=== PATIENT | female | born 1985 | race Caucasian/White ===

== ENCOUNTER 2018-02-23 21:15 | Emergency (ER) | payer OTHER ==
[~2018-02-23] VITALS: Ht 167.6 cm; Wt 64.0 kg
[2018-02-23 21:53] LABS: BASOPHILS # (AUTO) 0.09 x10^3/uL (0-0.1); BASOPHILS % (AUTO) 1 % (0-1); EOSINOPHILS # (AUTO) 0.08 x10^3/uL (0-0.4); EOSINOPHILS % (AUTO) 1 % (1-7); LYMPHOCYTES # (AUTO) 1.81 x10^3/uL (1-3.4); LYMPHOCYTES % (AUTO) 15 % (22-44); MD NO; MEAN CORPUSCULAR HEMOGLOBIN 31.2 pg (27.0-34.8); MEAN CORPUSCULAR HGB CONC 34.8 g/dL (32.4-35.8); MEAN CORPUSCULAR VOLUME 89.7 fL (80-100); MEAN PLATELET VOLUME 8.9 fL (7.4-10.4); MONOCYTES # (AUTO) 0.66 x10^3/uL (0.2-0.8); MONOCYTES % (AUTO) 6 % (2-9); NEUTROPHILS # (AUTO) 9.11 x10^3/uL (1.8-6.8); NEUTROPHILS % (AUTO) 78 % (42-75); PLATELET COUNT 244 x10^3/uL (130-400); RED CELL DISTRIBUTION WIDTH 13.9 % (9.6-15.2)
[2018-02-23 21:58] LABS: MICROSCOPIC AUTO
[2018-02-23 21:59] LABS: CULTURE INDICATED? YES
[2018-02-23 22:03] LABS: ANION GAP 10 mmol/L (5-15); CALCIUM 8.4 mg/dL (8.5-10.1); CHLORIDE 108 mmol/L (98-107); CREATININE 0.69 mg/dL (0.55-1.02)
[2018-02-23 22:56] VITALS: BP 121/64
== END 2018-02-23 23:20 | disposition home or self-care (01) ==
LOC: ED 22:40
DX: O20.0 Threatened abortion (principal); Z3A.19 19 weeks gestation of pregnancy
CPT/HCPCS: 36415; 76815; 80048; 81001; 82040; 84702; 85025; 86901; 87086; 99285

== ENCOUNTER 2018-05-12 11:51 | Inpatient (IN) | payer OTHER ==
[~2018-05-12] VITALS: Ht 167.6 cm; Wt 69.0 kg
[2018-05-12 12:04] VITALS: BP 125/70
[2018-05-12] MEDS ORDERED: PREN-3 PO (12:07)
[2018-05-12] MEDS ORDERED: HYDR250V5 IM (12:09)
[2018-05-12 12:25] LABS: MICROSCOPIC INDICATED
[2018-05-12] MEDS ORDERED: TERBUTALINE 1 MG/ML, 1ML ONE ×2 (14:31→23:44)
[2018-05-12] MEDS ORDERED: TERBUTALINE 1 MG/ML, 1ML SQ ONE (15:00)
[2018-05-12] MEDS ORDERED: PRENATAL VIT/IRON/FA 1 EACH TABLET ONE (22:15)
[2018-05-12] MEDS: PRENATAL VIT/IRON/FA 1 EACH TABLET PO SCH (22:17)
[2018-05-12] MEDS: LACTATED RINGERS 1,000 ML IV SCH (23:54)
[2018-05-13] MEDS ORDERED: TERBUTALINE 1 MG/ML, 1ML SQ ONE
[2018-05-13] MEDS ORDERED: MAGNESIUM SULF. PMX 20GM/500ML 500 ML IV ONE ×3 (03:37→17:57)
[2018-05-13] MEDS ORDERED: BETAMETHASONE 6 MG/ML, 5ML IM ONE (03:37)
[2018-05-13] MEDS ORDERED: MAGNESIUM SULF. PMX 20GM/500ML 500 ML IV SCH ×2 (03:38→15:51)
[2018-05-13] MEDS ORDERED: LACTATED RINGERS 1,000 ML IV PRN (03:38)
[2018-05-13] MEDS: BETAMETHASONE 6 MG/ML, 5ML IM SCH (03:49)
[2018-05-13] MEDS ORDERED: ONDANSETRON 2MG/ML, 2ML IVPush PRN (04:00)
[2018-05-13] MEDS ORDERED: MAGNESIUM SULFATE PMX 4GM/100M 100 ML IVPB ONE (04:00)
[2018-05-13 04:27] LABS: BASOPHILS # (AUTO) 0.04 x10^3/uL (0-0.1); BASOPHILS % (AUTO) 0 % (0-1); EOSINOPHILS # (AUTO) 0.06 x10^3/uL (0-0.4); EOSINOPHILS % (AUTO) 1 % (1-7); LYMPHOCYTES # (AUTO) 2.22 x10^3/uL (1-3.4); LYMPHOCYTES % (AUTO) 18 % (22-44); MD NO; MEAN CORPUSCULAR HGB CONC 33.2 g/dL (32.4-35.8); MEAN CORPUSCULAR VOLUME 90.3 fL (80-100); MEAN PLATELET VOLUME 9.4 fL (7.4-10.4); MONOCYTES # (AUTO) 0.81 x10^3/uL (0.2-0.8); MONOCYTES % (AUTO) 7 % (2-9); NEUTROPHILS # (AUTO) 9.25 x10^3/uL (1.8-6.8); NEUTROPHILS % (AUTO) 75 % (42-75); PLATELET COUNT 214 x10^3/uL (130-400); RED BLOOD COUNT 3.94 x10^6/uL (3.82-5.3); RED CELL DISTRIBUTION WIDTH 12.9 % (9.6-15.2)
[2018-05-13 04:32] LABS: ALANINE AMINOTRANSFERASE 17 U/L (12-78); ALBUMIN 2.5 g/dL (3.4-5.0); ANION GAP 9 mmol/L (5-15); CALCIUM 8.4 mg/dL (8.5-10.1); CHLORIDE 107 mmol/L (98-107); CREATININE 0.59 mg/dL (0.55-1.02)
[2018-05-13 04:34] LABS: ALKALINE PHOSPHATASE 89 U/L (45-117); TOTAL PROTEIN 5.7 g/dL (6.4-8.2)
[2018-05-13 04:35] LABS: BILIRUBIN,TOTAL < 0.1 mg/dL (0.2-1.0)
[2018-05-13] MEDS: MAGNESIUM SULF. PMX 20GM/500ML 500 ML IV SCH ×2 (05:48→09:40)
[2018-05-13] MEDS: LACTATED RINGERS 1,000 ML IV SCH ×2 (06:35→16:36)
[2018-05-13 07:15] VITALS: BP 120/61
[2018-05-13] MEDS ORDERED: DOCUSATE 100 MG CAPSULE PO SCH (09:00)
[2018-05-13] MEDS ORDERED: DOCUSATE 100 MG CAPSULE ONE (20:34)
[2018-05-13] MEDS ORDERED: PRENATAL VIT/IRON/FA 1 EACH TABLET ONE (20:34)
[2018-05-13] MEDS: PRENATAL VIT/IRON/FA 1 EACH TABLET PO SCH (20:36)
[2018-05-14] MEDS ORDERED: MAGNESIUM SULF. PMX 20GM/500ML 500 ML IV ONE (02:39)
[2018-05-14] MEDS: LACTATED RINGERS 1,000 ML IV SCH (03:20)
[2018-05-14] MEDS: BETAMETHASONE 6 MG/ML, 5ML IM SCH (03:27)
== END 2018-05-14 19:34 | disposition home or self-care (01) | DRG 831 ==
LOC: LDOP 11:51 → LDIP 15:19 → OBSVTOIN 15:19
PROVIDERS: ADMIT Obstetrics & Gynecology Maternal & Fetal Medicine; ATTEND Obstetrics & Gynecology Maternal & Fetal Medicine
DX: O46.93 Antepartum hemorrhage, unspecified, third trimester (principal); O60.03 Preterm labor without delivery, third trimester; Z3A.29 29 weeks gestation of pregnancy
CPT/HCPCS: 36415; 76815; 80053; 81001; 83735; 85025; 86850; 86900; 87086; G0378; J0702; J3105; J3475; J7120

== ENCOUNTER 2018-06-19 23:42 | Outpatient (CLI) | payer OTHER ==
[~2018-06-19] VITALS: Ht 167.6 cm; Wt 73.0 kg
[~2018-06-19 23:42] MED LIST: HYDR250V5 IM; PREN-3 PO
== END 2018-06-20 02:03 | disposition home or self-care (01) ==
LOC: LDOP 23:42
PROVIDERS: ATTEND Obstetrics & Gynecology Maternal & Fetal Medicine
DX: O26.893 Other specified pregnancy related conditions, third trimester (principal); R10.9 Unspecified abdominal pain; Z3A.35 35 weeks gestation of pregnancy
CPT/HCPCS: 59025; 87081; 99211; G0463

== ENCOUNTER 2018-06-29 21:45 | Inpatient (IN) | payer OTHER ==
[~2018-06-29] VITALS: Ht 167.6 cm; Wt 74.1 kg
[2018-06-29] MEDS ORDERED: MISOPROSTOL 200 MCG TABLET ONE (22:38)
[2018-06-29] MEDS ORDERED: NEWBORN KIT ONE (22:38)
[2018-06-29] MEDS ORDERED: LIDOCAINE 1%, 20ML ONE (22:38)
[2018-06-29] MEDS ORDERED: OXYTOCIN 30U/ 0.9% NaCL 500ML 500 ML ONE (22:38)
[2018-06-29] MEDS ORDERED: D5%-LACTATED RINGERS 1,000 ML IV SCH (22:57)
[2018-06-29] MEDS ORDERED: OXYTOCIN 30U/ 0.9% NaCL 500ML 500 ML IV ONE (22:57)
[2018-06-29] MEDS ORDERED: LACTATED RINGERS 1,000 ML IV SCH (22:57)
[2018-06-29] MEDS ORDERED: FENTANYL PF 100 MCG/2ML IVPush PRN (23:00)
[2018-06-29] MEDS ORDERED: CALCIUM CARBONATE 500 MG TAB.CHEW PO PRN (23:00)
[2018-06-29] MEDS ORDERED: TERBUTALINE 1 MG/ML, 1ML IVPush PRN (23:00)
[2018-06-29] MEDS ORDERED: FENTANYL PF 100 MCG/2ML IV PRN (23:00)
[2018-06-29] MEDS ORDERED: SODIUM CITRATE/CITRIC ACID 30 ML UDC PO PRN (23:00)
[2018-06-29] MEDS ORDERED: METOCLOPRAMIDE 5 MG/ML, 2ML IVPush PRN (23:00)
[2018-06-29] MEDS: LACTATED RINGERS 1,000 ML IV SCH ×2 (23:19→23:57)
[2018-06-29] MEDS ORDERED: FENTANYL/BUPIV./NS/PF 250 ML EPIDCONT SCH ×2 (23:19→23:57)
[2018-06-29] MEDS ORDERED: LACTATED RINGERS 1,000 ML IVBOLUS PRN (23:30)
[2018-06-29 23:37] LABS: BASOPHILS % (AUTO) 1 % (0-1); EOSINOPHILS # (AUTO) 0.07 x10^3/uL (0-0.4); EOSINOPHILS % (AUTO) 1 % (1-7); LYMPHOCYTES # (AUTO) 1.85 x10^3/uL (1-3.4); LYMPHOCYTES % (AUTO) 13 % (22-44); MD NO; MEAN CORPUSCULAR HEMOGLOBIN 30.1 pg (27.0-34.8); MEAN CORPUSCULAR HGB CONC 33.8 g/dL (32.4-35.8); MEAN PLATELET VOLUME 9.7 fL (7.4-10.4); MONOCYTES % (AUTO) 5 % (2-9); NEUTROPHILS # (AUTO) 11.07 x10^3/uL (1.8-6.8); NEUTROPHILS % (AUTO) 80 % (42-75); PLATELET COUNT 204 x10^3/uL (130-400); RED BLOOD COUNT 4.01 x10^6/uL (3.82-5.3); RED CELL DISTRIBUTION WIDTH 13.6 % (9.6-15.2)
[2018-06-29] MEDS ORDERED: BUPIVACAINE 0.25% ONE (23:58)
[2018-06-30] MEDS ORDERED: EPHEDRINE 50 MG/ML, 1ML IVPush PRN
[2018-06-30] MEDS ORDERED: LACTATED RINGERS 1,000 ML IVBOLUS PRN
[2018-06-30] MEDS ORDERED: NALOXONE 0.4 MG/ML, 1ML IVPush PRN
[2018-06-30] MEDS ORDERED: OXYTOCIN 30U/ 0.9% NaCL 500ML 500 ML IV SCH (03:08)
[2018-06-30] MEDS: OXYTOCIN 30U/ 0.9% NaCL 500ML 500 ML IV SCH ×2 (03:08→13:08)
[2018-06-30] MEDS ORDERED: ONDANSETRON 2MG/ML, 2ML IV PRN (03:30)
[2018-06-30] MEDS ORDERED: OXYcodone/APAP 5/325MG TABLET PO PRN (03:30)
[2018-06-30] MEDS ORDERED: ACETAMINOPHEN 325 MG TABLET PO PRN (03:30)
[2018-06-30] MEDS ORDERED: MISOPROSTOL 200 MCG TABLET PR PRN (03:30)
[2018-06-30] MEDS ORDERED: OXYcodone IR 5MG TABLET PO PRN (03:30)
[2018-06-30] MEDS ORDERED: DOCUSATE 100 MG CAPSULE PO PRN (03:30)
[2018-06-30 05:30] VITALS: BP 128/70
[2018-06-30] MEDS: IBUPROFEN 600 MG TABLET PO PRN ×3 (07:14→21:33)
[2018-06-30] MEDS: PRENATAL VIT/IRON/FA 1 EACH TABLET PO SCH (07:15)
[2018-06-30] MEDS: LACTATED RINGERS 1,000 ML IV SCH ×2 (07:19→07:57)
[2018-06-30 07:20] VITALS: BP 121/80
[2018-06-30] MEDS ORDERED: PRENATAL VIT/IRON/FA 1 EACH TABLET PO SCH (09:00)
[2018-06-30 11:01] LABS: BASOPHILS # (AUTO) 0.05 x10^3/uL (0-0.1); BASOPHILS % (AUTO) 0 % (0-1); EOSINOPHILS # (AUTO) 0.21 x10^3/uL (0-0.4); EOSINOPHILS % (AUTO) 1 % (1-7); LYMPHOCYTES % (AUTO) 8 % (22-44); MD NO; MEAN CORPUSCULAR HEMOGLOBIN 30.6 pg (27.0-34.8); MEAN CORPUSCULAR HGB CONC 34.4 g/dL (32.4-35.8); MEAN PLATELET VOLUME 9.5 fL (7.4-10.4); MONOCYTES # (AUTO) 0.92 x10^3/uL (0.2-0.8); MONOCYTES % (AUTO) 6 % (2-9); NEUTROPHILS # (AUTO) 13.46 x10^3/uL (1.8-6.8); NEUTROPHILS % (AUTO) 85 % (42-75); PLATELET COUNT 187 x10^3/uL (130-400); RED BLOOD COUNT 3.79 x10^6/uL (3.82-5.3); RED CELL DISTRIBUTION WIDTH 13.6 % (9.6-15.2)
[2018-06-30 12:30] VITALS: BP 123/76
[2018-06-30 16:10] VITALS: BP 120/75
[2018-06-30 21:15] VITALS: BP 114/70
[2018-06-30] MEDS ORDERED: DIPH,PERTUSS(ACELL),TET VAC/PF NC IM-VACC ONE (22:45)
[2018-07-01 03:00] VITALS: BP 119/74
[2018-07-01] MEDS: IBUPROFEN 600 MG TABLET PO PRN ×3 (03:25→15:11)
[2018-07-01] MEDS ORDERED: DIPH,PERTUSS(ACELL),TET VAC/PF NC IM-VACC ONE (03:30)
[2018-07-01] MEDS: PRENATAL VIT/IRON/FA 1 EACH TABLET PO SCH (08:19)
[2018-07-01 10:14] VITALS: BP 123/84
[2018-07-01] MEDS ORDERED: IBUP200T49 PO (17:58)
== END 2018-07-01 18:30 | disposition home or self-care (01) | DRG 807 ==
LOC: LDOP 21:45 → LDIP 22:30 → 2NW 06-30 05:12
PROVIDERS: ADMIT Obstetrics & Gynecology Maternal & Fetal Medicine; ATTEND Obstetrics & Gynecology Maternal & Fetal Medicine
PROC: 10E0XZZ Delivery of Products of Conception, External Approach (ICD-10-PCS; principal; 2018-06-30)
PROC: 0HQ9XZZ Repair Perineum Skin, External Approach (ICD-10-PCS; 2018-06-30)
PROC: 3E0R3BZ Introduction of Anesthetic Agent into Spinal Canal, Percutaneous Approach (ICD-10-PCS; 2018-06-30)
PROC: 00HU33Z Insertion of Infusion Device into Spinal Canal, Percutaneous Approach (ICD-10-PCS; 2018-06-30)
DX: O69.1XX0 Labor and delivery complicated by cord around neck, with compression, not applicable or unspecified (principal); Z37.0 Single live birth; O71.82 Other specified trauma to perineum and vulva; O70.0 First degree perineal laceration during delivery; Z3A.36 36 weeks gestation of pregnancy
CPT/HCPCS: 36415; J7121; 85025; 86900; 90715; G0378; J2590; J3010